=== PATIENT | female | born 1990 | race Hispanic/Latino ===

== ENCOUNTER 2019-01-18 21:39 | Emergency (ER) | payer OTHER ==
[~2019-01-18] VITALS: Ht 160 cm; Wt 90.7 kg
--- OUTSIDE RECORDS SUMMARY | 2019-01-18 21:42 | XMS REPORT | Continuity of Care Document ---
Author Author Zady Address Unknown Phone Unavailable Care Team Providers Care Channeling Machine Operator Name Role Phone Energy Excelerator Unavailable Unavailable Problems Problem Status Onset Date Classification Date Reported Comments Source Dysuria 10/29/2018 Diagnosis 10/29/2018 [facility] Body mass index 30+ - obesity 09/19/2018 Diagnosis 09/19/2018 [facility] Elevated blood-pressure reading without diagnosis of hypertension 09/18/2018 Diagnosis 09/19/2018 [facility] Urinary tract infectious disease 09/18/2018 Diagnosis 09/19/2018 [facility] Blood in urine 04/15/2018 Diagnosis 04/15/2018 [facility] Acute cystitis 04/15/2018 Diagnosis 04/15/2018 [facility] Acute Cystitis 04/15/2018 Problem 04/15/2018 [facility] Blood in Urine 04/15/2018 Problem 04/15/2018 [facility] Proteinuria 04/15/2018 Problem 04/15/2018 [facility] Acute tonsillitis 12/20/2017 Diagnosis 12/20/2017 [facility] Acute Tonsillitis 12/20/2017 Problem 12/20/2017 [facility] Body Mass Index 30+ - Obesity 11/09/2017 Problem 10/29/2018 [facility] Urinary Tract Infectious Disease 11/09/2017 Problem 11/09/2017 [facility] Urinary Symptoms 11/09/2017 Problem 11/09/2017 [facility] Cough 10/08/2017 Diagnosis 10/08/2017 [facility] Streptococcal sore throat 10/08/2017 Diagnosis 10/08/2017 [facility] Acute otitis media 07/02/2017 Diagnosis 07/03/2017 [facility] Feeling feverish 07/02/2017 Diagnosis 07/03/2017 [facility] Pain in throat 07/02/2017 Diagnosis 07/03/2017 [facility] Onych[employer]aze[employer] Innovationsosis of fingernails 01/13/2017 Diagnosis 01/14/2017 [facility] Counseling 08/26/2016 Diagnosis 08/26/2016 [facility] Allergic rhinitis 08/17/2016 Diagnosis 08/26/2016 [facility] Acute pharyngitis 08/17/2016 Diagnosis 08/26/2016 [facility] Immunization 08/17/2016 Diagnosis 08/26/2016 [facility] Acute Pharyngitis Problem 07/03/2017 [facility] Allergic Rhinitis Problem 07/03/2017 [facility] Acute Urinary Tract Infection Problem 07/03/2017 [facility] Medications Medication Details Route Status Patient Instructions Ordering Provider Order Date Source No Medications Reported No Medications Reported Active [facility] Clobetasol Propionate 0.5 MG/ML Topical Cream clobetasol 0.05 % topical cream Active [facility] [id number] 0.3 ML Epinephrine 1 MG/ML Auto-Injector epinephrine 0.3 mg/0.3 mL injection, auto-injector Active [facility] NITROFURANTOIN, MACROCRYSTALS 25 MG / Nitrofurantoin, Monohydrate 75 MG Oral Capsule nitrofurantoin monohydrate/macrocrystals 100 mg capsule Take 1 capsule twice a day by oral route with meals for 5 days. Active [facility] ciclopirox 80 MG/ML Topical Solution [Penlac Nail Lacquer] Penlac 8 % topical solution APPLY TO THE AFFECTED AREA(S) BY TOPICAL ROUTE ONCE DAILY PREFERABLY AT BEDTIME OR 8 HOURS BEFORE WASHING X 12 WEEKS. Active [facility] Phenazopyridine hydrochloride 200 MG Oral Tablet phenazopyridine 200 mg tablet Take 1 tablet 3 times a day by oral route as needed for bladder discomfort for 2 days. Active [facility] Amoxicillin 875 MG Oral Tablet amoxicillin 875 mg tablet Take 1 tablet twice a day by oral route for 10 days. Active [facility] NITROFURANTOIN, MACROCRYSTALS 25 MG / Nitrofurantoin, Monohydrate 75 MG Oral Capsule [Macrobid] Macrobid 100 mg capsule Take 1 capsule twice a day by oral route with meals for 5 days. Active [facility] Brompheniramine Maleate 0.4 MG/ML / Dextromethorphan Hydrobromide 2 MG/ML / Pseudoephedrine Hydrochloride 6 MG/ML Oral Solution [Bromfed DM] Bromfed DM 2 mg-30 mg-10 mg/5 mL syrup Take 10 mL every 4 hours by oral route. Active [facility] Lidocaine Hydrochloride 20 MG/ML Mucous Membrane Topical Solution Lidocaine Viscous 2 % mucosal solution Take 10 mL every 4 hours by oral route as needed. Max: 300 mg/dose, 8 doses/24h; Info: gargle; spit Active [facility] cefdinir 300 MG Oral Capsule cefdinir 300 mg capsule Take 1 capsule every 12 hours by oral route as directed for 10 days. Active [facility] Sulfamethoxazole 800 MG / Trimethoprim 160 MG Oral Tablet [Bactrim] Bactrim DS 800 mg-160 mg tablet Take 1 tablet every 12 hours by oral route for 5 days. Active [facility] Fluconazole 150 MG Oral Tablet fluconazole 150 mg tablet Active [facility] Allergies, Adverse Reactions, Alerts No Known Medication Allergies Immunizations Immunization Date Given Site Status Last Updated Comments Source influenza, injectable, quadrivalent 07/05/2018 completed [facility] Tdap 08/17/2016 completed [facility] Results Order Name Results Value Reference Range Date Interpretation Comments Source Urinalysis macro (dipstick) panel - Urine COLOR : Anneliese 10/29/2018 [facility] Urinalysis macro (dipstick) panel - Urine CLARITY : Cloudy 10/29/2018 [facility] Urinalysis macro (dipstick) panel - Urine LEUKOCYTES : Large 10/29/2018 [facility] Urinalysis macro (dipstick) panel - Urine NITRITES : Positive 10/29/2018 [facility] Urinalysis macro (dipstick) panel - Urine UROBILINOGEN : Normal 10/29/2018 [facility] Urinalysis macro (dipstick) panel - Urine PROTEIN : Trace 10/29/2018 [facility] Urinalysis macro (dipstick) panel - Urine pH : 5.0 10/29/2018 [facility] Urinalysis macro (dipstick) panel - Urine BLOOD : Large 10/29/2018 [facility] Urinalysis macro (dipstick) panel - Urine SPECIFIC GRAVITY : 1.000 10/29/2018 [facility] Urinalysis macro (dipstick) panel - Urine KETONES : Negative 10/29/2018 [facility] Urinalysis macro (dipstick) panel - Urine BILIRUBIN : Negative 10/29/2018 [facility] Urinalysis macro (dipstick) panel - Urine GLUCOSE Negative 10/29/2018 [facility] Urinalysis macro (dipstick) panel - Urine COLOR : Yellow 09/18/2018 [facility] Urinalysis macro (dipstick) panel - Urine CLARITY : Cloudy 09/18/2018 [facility] Urinalysis macro (dipstick) panel - Urine LEUKOCYTES : Large 09/18/2018 [facility] Urinalysis macro (dipstick) panel - Urine NITRITES : Positive 09/18/2018 [facility] Urinalysis macro (dipstick) panel - Urine UROBILINOGEN : Normal 09/18/2018 [facility] Urinalysis macro (dipstick) panel - Urine PROTEIN : Trace 09/18/2018 [facility] Urinalysis macro (dipstick) panel - Urine pH : 5.0 09/18/2018 [facility] Urinalysis macro (dipstick) panel - Urine BLOOD : Moderate 09/18/2018 [facility] Urinalysis macro (dipstick) panel - Urine SPECIFIC GRAVITY : 1.025 09/18/2018 [facility] Urinalysis macro (dipstick) panel - Urine KETONES : Negative 09/18/2018 [facility] Urinalysis macro (dipstick) panel - Urine BILIRUBIN : Negative 09/18/2018 [facility] Urinalysis macro (dipstick) panel - Urine GLUCOSE Negative 09/18/2018 [facility] Urinalysis macro (dipstick) panel - Urine COLOR : Yellow 04/15/2018 [facility] Urinalysis macro (dipstick) panel - Urine CLARITY : Cloudy 04/15/2018 [facility] Urinalysis macro (dipstick) panel - Urine LEUKOCYTES : Small 04/15/2018 [facility] Urinalysis macro (dipstick) panel - Urine NITRITES : Negative 04/15/2018 [facility] Urinalysis macro (dipstick) panel - Urine UROBILINOGEN : Normal 04/15/2018 [facility] Urinalysis macro (dipstick) panel - Urine PROTEIN : Trace 04/15/2018 [facility] Urinalysis macro (dipstick) panel - Urine pH : 8.0 04/15/2018 [facility] Urinalysis macro (dipstick) panel - Urine BLOOD : Moderate 04/15/2018 [facility] Urinalysis macro (dipstick) panel - Urine SPECIFIC GRAVITY : 1.010 04/15/2018 [facility] Urinalysis macro (dipstick) panel - Urine KETONES : Negative 04/15/2018 [facility] Urinalysis macro (dipstick) panel - Urine BILIRUBIN : Negative 04/15/2018 [facility] Urinalysis macro (dipstick) panel - Urine GLUCOSE Negative 04/15/2018 [facility] RESULT negative 12/20/2017 [facility] SWAB LOCATION Left and Right tonsillar pillars 12/20/2017 [facility] Urinalysis macro (dipstick) panel - Urine COLOR : Yellow 11/09/2017 [facility] Urinalysis macro (dipstick) panel - Urine CLARITY : Clear 11/09/2017 [facility] Urinalysis macro (dipstick) panel - Urine LEUKOCYTES : Large 11/09/2017 [facility] Urinalysis macro (dipstick) panel - Urine NITRITES : Negative 11/09/2017 [facility] Urinalysis macro (dipstick) panel - Urine UROBILINOGEN : Normal 11/09/2017 [facility] Urinalysis macro (dipstick) panel - Urine PROTEIN : Trace 11/09/2017 [facility] Urinalysis macro (dipstick) panel - Urine pH : 7.5 11/09/2017 [facility] Urinalysis macro (dipstick) panel - Urine BLOOD : Large 11/09/2017 [facility] Urinalysis macro (dipstick) panel - Urine SPECIFIC GRAVITY : 1.005 11/09/2017 [facility] Urinalysis macro (dipstick) panel - Urine KETONES : Negative 11/09/2017 [facility] Urinalysis macro (dipstick) panel - Urine BILIRUBIN : Negative 11/09/2017 [facility] Urinalysis macro (dipstick) panel - Urine GLUCOSE Negative 11/09/2017 [facility] RESULT negative 10/08/2017 [facility] RESULT negative 07/02/2017 [facility] SWAB LOCATION Left and Right tonsillar pillars 07/02/2017 [facility] Influenza A negative 07/02/2017 [facility] Influenza B negative 07/02/2017 [facility] Urinalysis macro (dipstick) panel - Urine COLOR : Anneliese 10/27/2016 [facility] Urinalysis macro (dipstick) panel - Urine CLARITY : Turbid 10/27/2016 [facility] Urinalysis macro (dipstick) panel - Urine LEUKOCYTES : Moderate 10/27/2016 [facility] Urinalysis macro (dipstick) panel - Urine NITRITES : Positive 10/27/2016 [facility] Urinalysis macro (dipstick) panel - Urine UROBILINOGEN : 2 10/27/2016 [facility] Urinalysis macro (dipstick) panel - Urine PROTEIN : 300 10/27/2016 [facility] Urinalysis macro (dipstick) panel - Urine pH : 6.5 10/27/2016 [facility] Urinalysis macro (dipstick) panel - Urine BLOOD : Large 10/27/2016 [facility] Urinalysis macro (dipstick) panel - Urine SPECIFIC GRAVITY : 1.030 10/27/2016 [facility] Urinalysis macro (dipstick) panel - Urine KETONES : Negative 10/27/2016 [facility] Urinalysis macro (dipstick) panel - Urine BILIRUBIN : Negative 10/27/2016 [facility] Urinalysis macro (dipstick) panel - Urine GLUCOSE Negative 10/27/2016 [facility] Influenza A negative 08/17/2016 [facility] Influenza B negative 08/17/2016 [facility] RESULT negative 08/17/2016 [facility] SWAB LOCATION Left and Right tonsillar pillars 08/17/2016 [facility] Pathology Reports No Data Provided for This Section Diagnostic Reports No Data Provided for This Section Consultation Notes No Data Provided for This Section Discharge Summaries No Data Provided for This Section History and Physicals No Data Provided for This Section Vital Signs Vital Sign Value Date Comments Source Diastolic (mm Hg) 76 10/29/2018 [facility] Height 63 10/29/2018 [facility] Systolic (mm Hg) 118 10/29/2018 [facility] Weight 190 10/29/2018 [facility] Diastolic (mm Hg) 70 09/18/2018 [facility] Height 63 09/18/2018 [facility] Systolic (mm Hg) 120 09/18/2018 [facility] Weight 190 09/18/2018 [facility] Diastolic (mm Hg) 76 04/15/2018 [facility] Height 63 04/15/2018 [facility] Systolic (mm Hg) 110 04/15/2018 [facility] Weight 190 04/15/2018 [facility] Diastolic (mm Hg) 76 12/20/2017 [facility] Height 63 12/20/2017 [facility] Systolic (mm Hg) 112 12/20/2017 [facility] Weight 190 12/20/2017 [facility] Diastolic (mm Hg) 68 11/09/2017 [facility] Height 63 11/09/2017 [facility] Systolic (mm Hg) 112 11/09/2017 [facility] Weight 190 11/09/2017 [facility] Diastolic (mm Hg) 76 10/08/2017 [facility] Height 63 10/08/2017 [facility] Systolic (mm Hg) 118 10/08/2017 [facility] Weight 190 10/08/2017 [facility] Diastolic (mm Hg) 82 07/02/2017 [facility] Height 63 07/02/2017 [facility] Systolic (mm Hg) 138 07/02/2017 [facility] Weight 180 07/02/2017 [facility] Diastolic (mm Hg) 90 01/13/2017 [facility] Height 63 01/13/2017 [facility] Systolic (mm Hg) 134 01/13/2017 [facility] Weight 190 01/13/2017 [facility] Diastolic (mm Hg) 86 10/27/2016 [facility] Height 63 10/27/2016 [facility] Systolic (mm Hg) 134 10/27/2016 [facility] Weight 180 10/27/2016 [facility] Diastolic (mm Hg) 80 08/17/2016 [facility] Height 63 08/17/2016 [facility] Systolic (mm Hg) 110 08/17/2016 [facility] Weight 190 08/17/2016 [facility] Encounters Location Location Details Encounter Type Encounter Number Reason For Visit Attending Provider ADM Date DC Date Status Source [place] - [facility] - [id number] JUDSON Richter: [address] [place] [address], Ph. [id number] Eirka Nugent 08/17/2016 [facility] [place] [facility] - [id number] MontalvoP: [address] [place] [address], Ph. [id number] Erika Nugent 08/17/2016 [facility] [place] [facility] - [id number] JUDSON Shah-C: [address] [place] [address], Ph. [id number] Rosetta Panchal 10/27/2016 [facility] [place] [facility] - [id number] Rosetta Panchal, TAG PRESS OPERATOR-C: [address], [place] [address], Ph. [id number] Rosetta Bautistaroy 01/13/2017 [facility] [place] [facility] - [id number] Anthony Dela Cruzen, TAG PRESS OPERATOR-C: [address], [place] [address], Ph. [phone] [id number] Anthony Nugent 07/02/2017 [facility] [place] [facility] - [id number] Juan Carlos Jose, TAG PRESS OPERATOR-C: [address], [place] [address], Ph. [id number] Juan Carlosdenisha Swansnoton 10/08/2017 [facility] [place] [facility] - [id number] Rosetta Panchal, TAG PRESS OPERATOR-C: [address], [place] [address], Ph. [id number] Rosetta Bautistaroy 11/09/2017 [facility] [place] [facility] - [id number] Rosetta Panchal, TAG PRESS OPERATOR-C: [address], [place] [address], Ph. [id number] Rosetta Panchal 12/20/2017 [facility] [place] [facility] - [id number] Rosetta Ansley, TAG PRESS OPERATOR-C: [address] [place] [address], Ph. [id number] Rosetta Panchal 04/15/2018 [facility] [place] [facility] - [id number] Radha Quick, TAG PRESS OPERATOR-C: [address] [place] [address], Ph. [phone] [id number] Radha Abdelrahman 09/18/2018 [facility] [place] [facility] - [id number] Gilda Bernal, SPORTS EQUIPMENT RACKER-C: [address] [place] [address], Ph. [id number] Gilda Bernal 10/29/2018 [facility] Procedures No Data Provided for This Section Assessment and Plan No Data Provided for This Section Plan of Care No Data Provided for This Section Social History Social History Date Source Smoking Status Never Smoker 08/04/2015 [facility] Family History No Data Provided for This Section Advance Directives No Data Provided for This Section Functional Status No Data Provided for This Section
--- OUTSIDE RECORDS SUMMARY | 2019-01-18 21:44 | XMS REPORT | Encounter Summary ---
Author Organization Unknown Address [address] [place] [address] Phone [phone] Care Team Providers Care Hand Mica Plate Layer Name Role Phone Francis Nino MD 3 [phone] Reason for Visit Medical Complaint Instructions 1. Dysuria culture, urine urinalysis, dipstick painful urination (dysuria): care instructions Bactrim DS 800 mg-160 mg tablet Discussion Note Pt in NAD, understands all information provided Plan of Care Patient Instructions Urinary Tract Infection Your symptoms and/or tests indicate a Urinary Tract Infection, a bacterial infection of the bladder. Take antibiotics only as prescribed. Once starting an antibiotic course, finish the entire course unless otherwise indicated by a medical professional. If you develop a reaction to the medication, including rash, hives, swelling of throat, difficulty breathing, stop immediately and seek medical care. Take a daily probiotic or eat a daily yogurt Drink plenty of non-caffeinated drinks. To prevent Urinary Tract Infections, wipe front to back if you are female, urinate after intercourse if you are active, drink plenty of fluids, urinate after bathing or swimming, do not keep wet clothing on for extended periods of time, and urinate when you have the urge (do not hold urine). If a urine culture was collected, you will receive a phone call with positive results and results without portal access. Normal results will be published to the portal at [facility] If symptoms continue or do not improve, follow up with your primary care provider. Seek care immediately with your primary care provider, an urgent care, or an emergency room if symptoms worsen or you develop fever above 101, vomiting, back pain, blood in the urine, abdominal pain, dizziness, difficulty or inability to urinate. If you have any need to contact [facility], including questions or concerns, please contact or Reminders Provider Appointments None recorded. Lab Culture, Urine 10/29/2018 [facility] Urinalysis, Dipstick 10/29/2018 [facility] Referral None recorded. Procedures None recorded. Surgeries None recorded. Imaging None recorded. Medications Name Start Date Bactrim DS 800 mg-160 mg tablet Take 1 tablet every 12 hours by oral route for 5 days. fluconazole 150 mg tablet Medications Administered None recorded. Vitals Height Weight BMI Blood Pressure 5 ft 3 in 190 lbs 33.7 kg/m2 118/76 mm[Hg] Lab Results Date Name Specimen Result Interpretation Description Value Range Status Address 10/29/2018 Urinalysis, Dipstick Color : Anneliese [facility]: [address] [place] [address] Clarity : Cloudy [facility]: [address] [place] [address] Leukocytes : Large [facility]: [address] [place] [address] Nitrites : Positive [facility]: [address] [place] [address] Urobilinogen : Normal [facility]: [address] [place] [address] Protein : Trace [facility]: [address] [place] [address] Ph : 5.0 [facility]: [address] [place] [address] Blood : Large [facility]: [address] [place] [address] Specific [place] : 1.000 [facility]: [address] [place] [address] Ketones : Negative [facility]: [address] [place] [address] Bilirubin : Negative [facility]: [address] [place] [address] Glucose Negative [facility]: [address] [place] [address] Allergies Code Code System Name Reaction Severity Status Onset NKDA Problems Name Status Onset Date Source Body Mass Index 30+ - Obesity Active 11/09/2017 Procedures None recorded. Vaccine List Vaccine Type influenza, injectable, quadrivalent 07/05/2018 Tdap 08/17/20160.5 mL Social History Smoking Status Never Smoker Past Encounters 10/29/2018 Dysuria Gilda Bernal, AMAN-C: [address] [place] [address], Ph. History of Present Illness [id number] Reported By: Patient HPI: Quality: pressure. Severity: moderate. Duration: started 4 days. Context: not sexually active, no known exposure to STD, no prior history of STDs. Associated Symptoms: no fever/chills, no flank pain, no jaundice, no blood in the urine, no vaginal discharge, no urgency, no blisters on genitals, no rash on genitals, no muscle aches, no headache, urinary frequency, feeling of incomplete emptying of bladder Review of Systems:ROS as noted in the HPI Review of Systems Basic Reported By: Patient Physical Exam Adult Basic, Adult Female Complete Reported By: Patient Constitutional: General Appearance: healthy-appearing, well-nourished, well-developed. Level of Distress: NAD. Ambulation: ambulating normally Psychiatric: Mental Status: active and alert. Orientation: to time, to place, to person Female : External genitalia: normal, no lesions, no rash; denies. Vagina: moist mucosa, no discharge; denies
--- OUTSIDE RECORDS SUMMARY | 2019-01-18 21:45 | XMS REPORT | Encounter Summary ---
Author Organization Unknown Address [address] [place] [address] Phone [phone] Reason for Visit Medical Complaint Instructions 1. Onychomycosis of fingernails Penlac 8 % topical solution Discussion Note Pt is in NAD; Verbalizes understanding of all instructions with no questions at this time. Patient educational handouts: No information available. Plan of Care Patient Instructions Keep area clean and dry apply antifungal solution as directed. Take medications as prescribed. Return to clinic or follow up with your PCP or title vehicle service attendant within 2-3 days if symptoms worsen as discussed. In case of emergency call 911 or go to nearest ER. Reminders Provider Appointments None recorded. Lab None recorded. Referral None recorded. Procedures None recorded. Surgeries None recorded. Imaging None recorded. Medications Name Start Date clobetasol 0.05 % topical cream epinephrine 0.3 mg/0.3 mL injection, auto-injector nitrofurantoin monohydrate/macrocrystals 100 mg capsule Take 1 capsule twice a day by oral route with meals for 5 days. Penlac 8 % topical solution APPLY TO THE AFFECTED AREA(S) BY TOPICAL ROUTE ONCE DAILY PREFERABLY AT BEDTIME OR 8 HOURS BEFORE WASHING X 12 WEEKS. phenazopyridine 200 mg tablet Take 1 tablet 3 times a day by oral route as needed for bladder discomfort for 2 days. Medications Administered None recorded. Vitals Height Weight BMI Blood Pressure 5 ft 3 in 190 lbs 33.7 kg/m2 134/90 mm[Hg] Lab Results None recorded. Allergies Code Code System Name Reaction Severity Onset NKDA Problems Name Status Onset Date Source Acute Pharyngitis Active Encounter Allergic Rhinitis Active Encounter Acute Urinary Tract Infection Active Encounter Cough Active Encounter Procedures None recorded. Vaccine List Vaccine Type Tdap 08/17/20160.5 mL Social History Smoking Status Never Smoker Past Encounters 01/13/2017 Onychomycosis of Fingernails Rosetta Panchal, JUDSON-C: [address] [place] [address], Ph. History of Present Illness [id number]-Skin Lesion-Bite 1 Reported By: Patient HPI: Location: hands. Quality: not itchy, not painful, multiple, localized. Severity: worsening, moderate. Duration: ; 2-3 days. Onset/Timing: gradual onset. Context: no new detergents or skin products, no one else with similar rash, no sting or bite; recent manicure. Aggravating factors: nothing makes it worse. Alleviating factors: nothing gives relief. Associated Symptoms: no fever/chills, no muscle aches, no headache, no cold symptoms, no nausea, no vomiting, no diarrhea, no urinary symptoms Review of Systems:ROS as noted in the HPI Review of Systems Basic Reported By: Patient Physical Exam Adult Basic, 11-13 Yr Males, 14-21 Yr Male, Adult Female Complete Reported By: Patient Constitutional: General Appearance: healthy-appearing, well-nourished, well-developed. Level of Distress: NAD. Ambulation: ambulating normally Psychiatric: Mental Status: active and alert. Orientation: to time, to place, to person Lungs: Respiratory effort: no dyspnea. Auscultation: breath sounds normal Cardiovascular: Heart Auscultation: RRR, no murmurs Skin: Inspection and palpation: no rash, no lesions, no ulcer, no abnormal nevi, no induration, no nodules, good turgor, no jaundice. Nails: abnormal Abdomen: Palpation: non-distended, no guarding, no tenderness. Liver: non-tender, no hepatomegaly. Spleen: non-tender, no splenomegaly. Hernia: no palpable hernias. Bowel Sounds: normal. Inspection and Palpation: soft, no rebound tenderness, no masses, no CVA tenderness
--- OUTSIDE RECORDS SUMMARY | 2019-01-18 21:45 | XMS REPORT | Encounter Summary ---
Author Organization Unknown Address [address] [place] [address] Phone [phone] Reason for Visit Medical Complaint Instructions 1. Acute otitis media amoxicillin 875 mg tablet 2. Feeling feverish rapid flu (A+B) 3. Pain in throat sore throat: care instructions rapid strep group A, throat Discussion Note: None recorded. Plan of Care Patient Instructions take medication as directed. zyrtec d or claritin d as directed. follow up pcp Reminders Provider Appointments None recorded. Lab Rapid Flu (A+B) 07/02/2017 [facility] Rapid Strep Group a, Throat 07/02/2017 [facility] Referral None recorded. Procedures None recorded. Surgeries None recorded. Imaging None recorded. Medications Name Start Date amoxicillin 875 mg tablet Take 1 tablet every 12 hours by oral route for 10 days. Medications Administered None recorded. Vitals Height Weight BMI Blood Pressure 5 ft 3 in 180 lbs 31.9 kg/m2 138/82 mm[Hg] Lab Results Date Name Specimen Result Interpretation Description Value Range Status Address Rapid Strep Group a, Throat Result negative [facility]: [address] [place] [address] Swab Location Left and Right tonsillar pillars [facility]: [address] [place] [address] Rapid Flu (A+B) Influenza a negative [facility]: [address] [place] [address] Influenza B negative [facility]: [address] [place] [address] Allergies Code Code System Name Reaction Severity Status Onset NKDA Problems Name Status Onset Date Source Acute Pharyngitis Active Encounter Allergic Rhinitis Active Encounter Acute Urinary Tract Infection Active Encounter Cough Active Encounter Procedures None recorded. Vaccine List Vaccine Type Tdap 08/17/20160.5 mL Social History Smoking Status Never Smoker Past Encounters 07/02/2017 Acute Otitis Media; Feeling Feverish; Pain in Throat [facility]: [address] [facility] [place] [address], Ph. History of Present Illness Tuihz-Afkqjccwto-Yeibrzh Reported By: Patient HPI: Location: throat, chest. Quality: productive cough, sore throat, colored phlegm. Duration: 5days. Severity: moderate. Onset/Timing: gradual. Context: no sick contacts, no foreign travel, non-smoker. Modifying factors: OTC medication. Associated Symptoms: no sputum production, no shortness of breath, no wheezing, no change in number of pillows needed to sleep at night, no sweats, no significant weight gain, no significant weight loss, no morning cough, no vomiting, no diarrhea, no rash, no nausea, no fever, no muscle aches, no headache, sore throat Review of Systems:ROS as noted in the HPI Review of Systems Basic Reported By: Patient Physical Exam Adult Basic, Adult Female Complete Reported By: Patient Constitutional: General Appearance: obese. Level of Distress: NAD. Ambulation: ambulating normally Psychiatric: Mental Status: active and alert Eyes: Lids and Conjunctivae: non-injected, no discharge Jfs-Mrja-Cxfxd-Throat: Ears: TM erythematous, TM bulging; right ear. Hearing: hearing decreased. Nose: no lesions on external nose, nares patent, no septal deviation, nasal passages clear, no sinus tenderness, no nasal discharge. Lips, Teeth, and Gums: no mouth or lip ulcers. Oropharynx: moist mucous membranes, no erythema, no exudates, tonsils not enlarged Neck: Neck: trachea midline. Lymph Nodes: no cervical LAD Lungs: Respiratory effort: no dyspnea, no tachypnea, no use of accessory muscles, no intercostal retractions. Auscultation: breath sounds normal Cardiovascular: Heart Auscultation: RRR, no murmurs
--- OUTSIDE RECORDS SUMMARY | 2019-01-18 21:46 | XMS REPORT | Encounter Summary ---
Author Organization Unknown Address [address] [place] [address] Phone [phone] Reason for Visit Medical Complaint Instructions 1. Streptococcal sore throat rapid strep group A, throat rapid flu (A+B) Lidocaine Viscous 2 % mucosal solution amoxicillin 875 mg tablet strep throat: care instructions rapid strep group A, throat hand-washing: care instructions 2. Cough cough: care instructions Bromfed DM 2 mg-30 mg-10 mg/5 mL syrup Discussion Note Pt is in no apparent acute distress; Verbalizes understanding of and agreement with all instructions with no questions at this time. Plan of Care Patient Instructions When to seek urgent help See your doctor or seek Emergency Services immediately if you have a sore throat along with any of the following: Difficulty breathing Skin rash Drooling because you cannot swallow Swelling of the neck or tongue Stiff neck or difficulty opening the mouth Underlying chronic illness/medication that may impair your immune system Pain medication Edvw-rtl-uvlyrpm pain relievers such as acetaminophen (Tylenol) or a nonsteroidal anti-inflammatory agent such as ibuprofen or naproxen (Motrin or Aleve) have been shown to provide fast and effective relief of sore throat pain. Oral steroids are not routinely used because steroids come with (potentially serious) side effects, the benefit in treating sore throat pain is limited, and ufjr-gqh-jtkdlns treatments help most patients. Oral rinses Salt-water gargles are an old standby for throat pain. It is not clear that salt water works to relieve pain, but it is unlikely to be harmful. Most recipes suggest 1/4 to 1/2 teaspoon (1.5 to 3.0 g) of salt per one cup (8 ounces or 250 mL) of warm water. Sprays Sprays containing topical anesthetics (eg, benzocaine, phenol) are available to treat sore throat. However, such sprays are no more effective than sucking on hard candy. Lozenges A variety of lozenges (cough drops) containing topical anesthetics are available to treat throat pain or relieve dryness. Lozenges may persist longer in the throat than sprays or gargles and, thus, may be more effective for symptom relief [2]. Other treatments Other treatments that may help with throat pain include sipping warm beverages (eg, honey or lemon tea, chicken soup), cold beverages, or eating cold or frozen desserts (eg, ice cream, popsicles). Alternative therapies Health food stores, vitamin outlets, and internet websites offer alternative treatments for relief of sore throat pain. These types of treatments are not recommend due to the risks of contamination with pesticides/herbicides, inaccurate labeling and dosing information, and a lack of studies showing that these treatments are safe and effective. Return to work/school If you have been diagnosed with strep throat, stay home from work or school until you have completed 24 hours of antibiotics. Within 24 hours of beginning antibiotic treatment, you will feel better and will be less contagious. If you have a sore throat (not diagnosed as strep), you may participate in your usual activities as soon as you feel well, though practical prevention measures such as good hand washing and cough etiquette should be observed. Most facilities such as schools and businesses have internal rules governing return to work after illness. Many require 24 hours of no fever without the use of fever reducers such as acetaminophen or ibuprofen. Check with your job or school to find out when you may return per their rules. Thank you for allowing me to participate in your healthcare! Reminders Provider Appointments None recorded. Lab Rapid Strep Group a, Throat 10/08/2017 [facility] Rapid Flu (A+B) 10/08/2017 [facility] Rapid Strep Group a, Throat 10/08/2017 [facility] Referral None recorded. Procedures None recorded. Surgeries None recorded. Imaging None recorded. Medications Name Start Date amoxicillin 875 mg tablet Take 1 tablet twice a day by oral route for 10 days. Bromfed DM 2 mg-30 mg-10 mg/5 mL syrup Take 10 mL every 4 hours by oral route. Lidocaine Viscous 2 % mucosal solution Take 10 mL every 4 hours by oral route as needed. Max: 300 mg/dose, 8 doses/24h; Info: gargle; spit Medications Administered None recorded. Vitals Height Weight BMI Blood Pressure 5 ft 3 in 190 lbs 33.7 kg/m2 118/76 mm[Hg] Lab Results Date Name Specimen Result Interpretation Description Value Range Status Address 10/08/2017 Rapid Strep Group a, Throat Result negative [facility]: [address] [facility] Allergies Code Code System Name Reaction Severity Status Onset NKDA Problems None recorded. Procedures None recorded. Vaccine List Vaccine Type Tdap 08/17/20160.5 mL Social History Smoking Status Never Smoker Past Encounters 10/08/2017 Streptococcal Sore Throat; Cough Juan Carlos Garcia, [facility]: [address] [place] [address], Ph. History of Present Illness Throat-Oral Complaint Reported By: Patient HPI: Location: throat. Quality: sore throat, productive cough, congested. Severity: mild, moderate. Duration: 3 days. Onset/Timing: gradual. Context: no foreign travel, non-smoker, sick contact. Associated Symptoms: no fever, no headache, no body aches, no sputum production, no shortness of breath, no wheezing, no change in number of pillows needed to sleep at night, no sweats, no significant weight gain, no significant weight loss, no morning cough, no vomiting, no diarrhea, no rash, no nausea, fever, sore throat Review of Systems:ROS as noted in the HPI Review of Systems Basic Reported By: Patient Physical Exam Adult Basic, Adult Female Complete Reported By: Patient
--- OUTSIDE RECORDS SUMMARY | 2019-01-18 21:47 | XMS REPORT | Encounter Summary ---
Author Organization Unknown Address [address] [place] [address] Phone [phone] Care Team Providers Care Immersion Metal Cleaner Name Role Phone Francis Nino MD 3 [phone] Reason for Visit Medical Complaint Instructions 1. Body mass index 30+ - obesity body mass index: care instructions 2. Acute tonsillitis rapid strep group A, throat tonsillitis: care instructions cefdinir 300 mg capsule culture, respiratory Discussion Note Pt is in NAD; Verbalizes understanding of all instructions with no questions at this time. Plan of Care Patient Instructions Alternate with Ibuprofen and acetaminophen every 4hrs as needed for pain/fever/headache/sore throat. Proper hydration and rest. Take antibiotics as directed. Do not share any utensils/cups, no kissing and change toothbrush after 48 hrs of antibiotic use. Take medications as prescribed. Return to clinic or follow up with your PCP within 2-3 days if symptoms worsen as discussed. Recommend follow a low sodium/fat/carb diet and exercise 30-45 mins/d 3-4 days a week once symptoms resolve. Reminders Provider Appointments None recorded. Lab Rapid Strep Group a, Throat 12/20/2017 [facility] Culture, Respiratory 12/20/2017 [facility] Referral None recorded. Procedures None recorded. Surgeries None recorded. Imaging None recorded. Medications Name Start Date cefdinir 300 mg capsule Take 1 capsule every 12 hours by oral route as directed for 10 days. Medications Administered None recorded. Vitals Height Weight BMI Blood Pressure 5 ft 3 in 190 lbs 33.7 kg/m2 112/76 mm[Hg] Lab Results Date Name Specimen Result Interpretation Description Value Range Status Address Rapid Strep Group a, Throat Result negative [facility]: [address] [place] [address] Swab Location Left and Right tonsillar pillars [facility]: [address] [place] [address] Allergies Code Code System Name Reaction Severity Status Onset NKDA Problems Name Status Onset Date Source Body Mass Index 30+ - Obesity Active 11/09/2017 Acute Tonsillitis Active 12/20/2017 Procedures None recorded. Vaccine List Vaccine Type Tdap 08/17/20160.5 mL Social History Smoking Status Never Smoker Past Encounters 12/20/2017 Body Mass Index 30+ - Obesity; Acute Tonsillitis Rosetta Bautistaroy, [facility]: [address] [place] [address], Ph. History of Present Illness Throat-Oral Complaint Reported By: Patient HPI: Location: throat. Quality: sore throat. Severity: moderate, pain level 2/10. Duration: 3 days. Onset/Timing: sudden. Context: no foreign travel, non-smoker, sick contact. Modifying factors: ; has not taken anything. Associated Symptoms: no fever, no headache, no body aches, no sputum production, no shortness of breath, no wheezing, no change in number of pillows needed to sleep at night, no sweats, no significant weight gain, no significant weight loss, no morning cough, no vomiting, no diarrhea, no rash, no nausea, sore throat Review of Systems Basic Reported By: Patient Constitutional: Constitutional: no fever Eyes: Eyes: no eye complaints Bmim-Mqee-Cmgpu-Throat: Ears: no ear complaints. Nose: no nose/sinus problems. Mouth/Throat: no bleeding gums, no mouth complaints, no teeth problems, sore throat Cardiovascular: Cardiovascular: no chest pain, no shortness of breath, no known heart murmur Respiratory: Respiratory: no cough, no wheezing, no shortness of breath Gastrointestinal: Gastrointestinal: no abdominal pain, no vomiting / diarrhea Genitourinary: Genitourinary: no urinary complaints, no discharge Musculoskeletal: Musculoskeletal: no muscle aches, no muscle weakness, no arthralgias/joint pain, no back pain Skin: Skin: no abnormal / changing mole, no jaundice, no rashes Neurologic: Neurologic: no loss of consciousness, no weakness, no numbness, no seizures, no dizziness, no headaches Physical Exam Adult Basic, Adult Female Complete Reported By: Patient Constitutional: General Appearance: obese. Level of Distress: NAD. Ambulation: ambulating normally Psychiatric: Mental Status: active and alert. Orientation: to time, to place, to person Tpp-Pdvb-Zpsdt-Throat: Ears: no lesions on external ear, no outer ear tenderness, EACs clear, TMs clear. Hearing: no hearing loss. Nose: no lesions on external nose, nares patent, no septal deviation, nasal passages clear, no sinus tenderness, no nasal discharge. Lips, Teeth, and Gums: no mouth or lip ulcers, no bleeding gums, normal dentition. Oropharynx: moist mucous membranes, erythema, exudates, tonsils enlarged 3+ Neck: Lymph Nodes: no cervical LAD Lungs: Respiratory effort: no dyspnea, no tachypnea, no use of accessory muscles, no intercostal retractions. Auscultation: breath sounds normal Cardiovascular: Heart Auscultation: RRR, no murmurs Neurologic: Gait and Station: normal gait, normal station
--- OUTSIDE RECORDS SUMMARY | 2019-01-18 21:47 | XMS REPORT | Encounter Summary ---
Author Organization Unknown Address [address] [place] [address] Phone [phone] Care Team Providers Care Rehabilitation Liaison Name Role Phone Francis Nino MD 3 [phone] Reason for Visit Medical Complaint Instructions 1. Urinary tract infectious disease urinary tract infection in women: care instructions Macrobid 100 mg capsule urinalysis, dipstick culture, urine 2. Body mass index 30+ - obesity body mass index: care instructions Discussion Note Pt is in NAD; Verbalizes understanding of all instructions with no questions at this time. Plan of Care Patient Instructions Recommend proper hydration and frequent urination. Avoid douching, Recommend urinating after sexual intercourse. Recommend wipe front to back after urinating. Avoid using tubs. Take medications as prescribed. Follow up with your PCP within 2-3 days if symptoms worsen as discussed. Recommend follow a low sodium/fat/carb diet and exercise 30-45 mins/d 3-4 days a week once symptoms resolve. Reminders Provider Appointments None recorded. Lab Urinalysis, Dipstick 11/09/2017 [facility] Culture, Urine 11/09/2017 [facility] Referral None recorded. Procedures None recorded. Surgeries None recorded. Imaging None recorded. Medications Name Start Date Macrobid 100 mg capsule Take 1 capsule twice a day by oral route with meals for 5 days. Medications Administered None recorded. Vitals Height Weight BMI Blood Pressure 5 ft 3 in 190 lbs 33.7 kg/m2 112/68 mm[Hg] Lab Results Date Name Specimen Result Interpretation Description Value Range Status Address 11/09/2017 Urinalysis, Dipstick Color : Yellow [facility]: [address] [place] [address] Clarity : Clear [facility]: [address] [place] [address] Leukocytes : Large [facility]: [address] [place] [address] Nitrites : Negative [facility]: [address] [place] [address] Urobilinogen : Normal [facility]: [address] [place] [address] Protein : Trace [facility]: [address] [place] [address] Ph : 7.5 [facility]: [address] [facility] Blood : Large [facility]: [address] [facility] Specific [place] : 1.005 [facility]: [address] [facility] Ketones : Negative [facility]: [address] [facility] Bilirubin : Negative [facility]: [address] [facility] Glucose Negative [facility]: [facility] Allergies Code Code System Name Reaction Severity Status Onset NKDA Problems Name Status Onset Date Source Body Mass Index 30+ - Obesity Active 11/09/2017 Urinary Tract Infectious Disease Active 11/09/2017 Urinary Symptoms Active 11/09/2017 Procedures None recorded. Vaccine List Vaccine Type Tdap 08/17/20160.5 mL Social History Smoking Status Never Smoker Past Encounters 11/09/2017 Urinary Tract Infectious Disease; Body Mass Index 30+ - Obesity Rosetta Panchal, [facility]: [address] [place] [address], Ph. History of Present Illness Tskmfe-BNV-Jsueiyx Reported By: Patient HPI: Location: urethra. Quality: burning. Severity: worsening, moderate. Duration: constant. Onset/Timing: worse, gradual. Context: no known exposure to STD, no prior history of STDs, sexually active, LMP4-21-18, heterosexual, vaginal intercourse, wipes anterior to posterior, voids after intercourse. Modifying factors nothing makes it worse. Associated Symptoms: no fever/chills, no flank pain, no jaundice, no blood in the urine, no pain during urination, no vaginal discharge, no blisters on genitals, no rash on genitals, no muscle aches, no headache, burning sensation during urination Review of Systems Basic Reported By: Patient Constitutional: Constitutional: no fever Eyes: Eyes: no eye complaints Pehe-Uhwl-Oewac-Throat: Ears: no ear complaints. Nose: no nose/sinus problems. Mouth/Throat: no sore throat, no bleeding gums, no mouth complaints, no teeth problems Cardiovascular: Cardiovascular: no chest pain, no shortness of breath, no known heart murmur Respiratory: Respiratory: no cough, no wheezing, no shortness of breath Gastrointestinal: Gastrointestinal: no abdominal pain, no vomiting / diarrhea Genitourinary: Genitourinary: dysuria Musculoskeletal: Musculoskeletal: no muscle aches, no muscle [...] Orientation: to time, to place, to person Eyes: Lids and Conjunctivae: non-injected, no pallor; no periorbital edema Neck: Neck: supple. Lymph Nodes: no cervical LAD Lungs: Respiratory effort: no dyspnea, no tachypnea, no use of accessory muscles, no intercostal retractions. Auscultation: breath sounds normal Cardiovascular: Heart Auscultation: RRR, no murmurs Musculoskeletal:: Extremities: no edema Neurologic: Gait and Station: normal gait Abdomen: Bowel Sounds: normal. Inspection and Palpation: soft, non-distended, no tenderness, no guarding, no rebound tenderness, no masses, no CVA tenderness. Hernia: none palpable
--- OUTSIDE RECORDS SUMMARY | 2019-01-18 21:48 | XMS REPORT | Encounter Summary ---
Author Organization Unknown Address [address] [place] [address] Phone [phone] Care Team Providers Care Frame Changer Name Role Phone Francis Nino MD 3 [phone] Reason for Visit Medical Complaint Instructions 1. Urinary tract infectious disease urinary tract infection in women: care instructions culture, urine Macrobid 100 mg capsule urinalysis, dipstick 2. Elevated blood-pressure reading without diagnosis of hypertension elevated blood pressure: care instructions 3. Body mass index 30+ - obesity A healthy lifestyle: care instructions Discussion Note: None recorded. Plan of Care Patient Instructions Drink plenty of water and wear cotton underwear. Please finish all antibiotics, even if you are feeling better. This prevents the infection from coming back. Please seek care or return to [facility] if symptoms do not resolve in 1 week. Reminders Provider Appointments None recorded. Lab Culture, Urine 09/18/2018 [facility] Urinalysis, Dipstick 09/18/2018 [facility] Referral None recorded. Procedures None recorded. Surgeries None recorded. Imaging None recorded. Medications Name Start Date Macrobid 100 mg capsule Take 1 capsule twice a day by oral route with meals for 5 days. Medications Administered None recorded. Vitals Height Weight BMI Blood Pressure 5 ft 3 in 190 lbs 33.7 kg/m2 (1) 124/68 mm[Hg] (2) 120/70 mm[Hg] Lab Results Date Name Specimen Result Interpretation Description Value Range Status Address Urinalysis, Dipstick Color : Yellow [facility]: [address] [place] [address] Clarity : Cloudy [facility]: [address] [place] [address] Leukocytes : Large [facility]: [address] [place] [address] Nitrites : Positive [facility]: [address] [place] [address] Urobilinogen : Normal [facility]: [address] [place] [address] Protein : Trace [facility]: [address] [place] [address] Ph : 5.0 [facility]: [address] [place] [address] Blood : Moderate [facility]: [address] [place] [address] Specific [place] : 1.025 [facility]: [facility] Ketones : Negative [facility]: [address] [facility] Bilirubin : Negative [facility]: [address] [facility] Glucose Negative [facility]: [facility] Allergies Code Code System Name Reaction Severity Status Onset NKDA Problems Name Status Onset Date Source Body Mass Index 30+ - Obesity Active 11/09/2017 Procedures None recorded. Vaccine List Vaccine Type influenza, injectable, quadrivalent 07/05/2018 Tdap 08/17/20160.5 mL Social History Smoking Status Never Smoker Past Encounters 09/18/2018 Urinary Tract Infectious Disease; Elevated Blood-pressure Reading without Diagnosis of Hypertension; Body Mass Index 30+ - Obesity Radha Quick [employer]: [address] [place] [address], Ph. History of Present Illness Ntqrtl-EOG-Pkosbrk Reported By: Patient HPI: Duration: started 1 day. Context: no known exposure to STD, no prior history of STDs, sexually active. Associated Symptoms: no fever/chills, no flank pain, no jaundice, no blood in the urine, no vaginal discharge, no blisters on genitals, no rash on genitals, pain during urination, burning sensation during urination, urgency, hesitancy, urinary frequency, feeling of incomplete emptying of bladder Review of Systems:ROS as noted in the HPI Review of Systems Basic Reported By: Patient Physical Exam Adult Basic, Adult Female Complete, 14-21 Yr Females Reported By: Patient Constitutional: General Appearance: healthy-appearing, well-nourished, well-developed. Level of Distress: NAD. Ambulation: ambulating normally Lungs: Respiratory effort: no dyspnea, no tachypnea, no use of accessory muscles, no intercostal retractions. Auscultation: breath sounds normal, clear to auscultation, no wheezing, no rales/crackles, no rhonchi, no retractions Cardiovascular: Heart Auscultation: RRR, no murmurs, no gallops, no rub, normal femoral pulse. Rate and rhythm: regular Abdomen: Bowel Sounds: normal. Inspection and Palpation: soft, non-distended, no tenderness, no guarding, no rebound tenderness, no masses, no CVA tenderness. Liver: non-tender, no hepatomegaly. Spleen: non-tender, no splenomegaly. Hernia: none palpable. Palpation: (normal) bowel sounds
--- OUTSIDE RECORDS SUMMARY | 2019-01-18 21:49 | XMS REPORT | Encounter Summary ---
Author Organization Unknown Address [address] [place] [address] Phone [phone] Care Team Providers Care Fountain Jerk Name Role Phone Francis Nino MD 3 [phone] Reason for Visit Medical Complaint Instructions 1. Acute cystitis urinalysis, dipstick urinary tract infection in women: care instructions Macrobid 100 mg capsule culture, urine 2. Blood in urine blood in the urine: care instructions 3. Proteinuria proteinuria: care instructions 4. Body mass index 30+ - obesity body [...] within 2-3 days if symptoms worsen as discussed and within a week for re-assessment of protein and blood in urine. Recommend follow a low sodium/fat/carb diet and exercise 30-45 mins/d 3-4 days a week once symptoms resolve. Reminders Provider Appointments None recorded. Lab Urinalysis, Dipstick 04/15/2018 [facility] Culture, Urine 04/15/2018 [facility] Referral None recorded. Procedures None recorded. Surgeries None recorded. Imaging None recorded. Medications Name Start Date Macrobid 100 mg capsule Take 1 capsule twice a day by oral route with meals for 5 days. Medications Administered None recorded. Vitals Height Weight BMI Blood Pressure 5 ft 3 in 190 lbs 33.7 kg/m2 110/76 mm[Hg] Lab Results Date Name Specimen Result Interpretation Description Value Range Status Address 04/15/2018 Urinalysis, Dipstick Color : Yellow [facility]: [address] [place] [address] Clarity : Cloudy [facility]: [address] [place] [address] Leukocytes : Small [facility]: [address] [place] [address] Nitrites : Negative [facility]: [address] [place] [address] Urobilinogen : Normal [facility]: 9 [facility] Protein : Trace [facility]: 9 [facility] Ph : 8.0 [facility]: 9 [facility] Blood : Moderate [facility]: 9 [facility] Specific [place] : 1.010 [facility]: 9 [facility] Ketones : Negative [facility]: 9 [facility] Bilirubin : Negative [facility]: 9 [facility] Glucose Negative [facility]: 9 [facility] Allergies Code Code System Name Reaction Severity Status Onset NKDA Problems Name Status Onset Date Source Body Mass Index 30+ - Obesity Active 11/09/2017 Acute Cystitis Active 04/15/2018 Blood in Urine Active 04/15/2018 Proteinuria Active 04/15/2018 Procedures None recorded. Vaccine List Vaccine Type Tdap 08/17/20160.5 mL Social History Smoking Status Never Smoker Past Encounters 04/15/2018 Acute Cystitis; Blood in Urine; Proteinuria; Body Mass Index 30+ - Obesity Rosetta Panchal, [facility]: [address] [place] [address], Ph. History of Present Illness [id number] Reported By: Patient HPI: Location: radiation to bladder, urethra. Quality: pain, pressure, burning. Severity: worsening, moderate. Duration: started 04-14-18, constant. Onset/Timing: worse, gradual. Context: no known exposure to STD, no prior history of STDs, sexually active, LMP9-29-18, heterosexual, vaginal intercourse, history of urine cultures/antibiotic treatment, wipes anterior to posterior, voids after intercourse. Modifying factors nothing makes it worse. Associated Symptoms: no fever/chills, no flank pain, no jaundice, no blood in the urine, no vaginal discharge, no blisters on genitals, no rash on genitals, no muscle aches, no headache, pain during urination, urgency, hesitancy Review of Systems:ROS as noted in the [...] hepatomegaly. Spleen: non-tender, no splenomegaly. Hernia: none palpable
--- OUTSIDE RECORDS SUMMARY | 2019-01-18 21:49 | XMS REPORT | Encounter Summary ---
Author Organization Unknown Address [address] [place] [address] Phone [phone] Reason for Visit Medical Complaint; Immunization; sore throat, congestion , coughx 3 days Instructions 1. Allergic rhinitis 2. Acute pharyngitis rapid strep group A, throat 3. Cough rapid flu (A+B) 4. Immunization Adacel (Tdap Adolesn/Adult)(PF)2Lf-(2.5-5-3-5mcg)-5 Lf/0.5 mL IM susp Discussion Note: None recorded. Patient educational handouts: No information available. Plan of Care Patient Instructions As discussed above. Reminders Provider Appointments None recorded. Lab Rapid Flu (A+B) 08/17/2016 [facility] Rapid Strep Group a, Throat 08/17/2016 [facility] Referral None recorded. Procedures None recorded. Surgeries None recorded. Imaging None recorded. Medications No Medications Reported Medications Administered None recorded. Vitals Height Weight BMI Blood Pressure 5 ft 3 in 190 lbs 33.7 110/80 Lab Results Date Name Result Description Value Range Status Rapid Flu (A+B) Influenza a negative Influenza B negative Rapid Strep Group a, Throat Result negative Swab Location Left and Right tonsillar pillars Allergies Name Reaction Severity Onset NKDA Problems Name Status Onset Date Source Acute Pharyngitis Active Encounter Allergic Rhinitis Active Encounter Acute Urinary Tract Infection Active Encounter Cough Active Encounter Procedures None recorded. Vaccine List Vaccine Type Tdap 08/17/20160.5 mL Social History Smoking Status Never Smoker Past Encounters 08/17/2016 Allergic Rhinitis; Acute Pharyngitis; Cough; Immunization [facility]: [address] [place] [address], Ph. History of Present Illness Throat-Oral Complaint Reported By: Patient HPI: Location: throat. Quality: sore throat, congested, dry or hacking cough. Severity: moderate. Duration: 4 days. Onset/Timing: sudden. Context: no sick contacts, no foreign travel, non-smoker. Modifying factors: OTC medication. Associated Symptoms: no sputum production, no shortness of breath, no wheezing, no change in number of pillows needed to sleep at night, no sweats, no significant weight gain, no significant weight loss, no morning cough, no vomiting, no diarrhea, no rash, no nausea, sore throat Immunization Reported By: Patient HPI: Immunization Request (normal) no symptoms. Immunization eligibility questions No vaccines in last month, No reaction to previous vaccines:, No Known Allergies Review of Systems Basic Reported By: Patient Constitutional: Constitutional: no fever Eyes: Eyes: no eye complaints Vsfw-Nliw-Tbqcy-Throat: Ears: no ear complaints; pressure left side. Nose: nose/sinus problems. Mouth/Throat: no bleeding gums, no mouth complaints, no teeth problems, sore throat Cardiovascular: Cardiovascular: no chest pain, no shortness of breath, no known heart murmur Respiratory: Respiratory: no wheezing, no shortness of breath, cough Gastrointestinal: Gastrointestinal: no abdominal pain, no vomiting / diarrhea Genitourinary: Genitourinary: no urinary complaints, no discharge Musculoskeletal: Musculoskeletal: no muscle aches, no muscle weakness, no arthralgias/joint pain, no back pain Skin: Skin: no abnormal / changing mole, no jaundice, no rashes Neurologic: Neurologic: no loss of consciousness, no weakness, no numbness, no seizures, no dizziness, no headaches Physical Exam Adult Basic, Adult Female Complete, Immunization Constitutional: General Appearance: healthy-appearing, well-nourished, well-developed. Level of Distress: NAD. Ambulation: ambulating normally Psychiatric: Mental Status: active and alert. Orientation: to time, to place, to person Eyes: Lids and Conjunctivae: non-injected, no discharge, no pallor. Pupils: PERRLA. Corneas: grossly intact. EOM: EOMI. Lens: clear. Sclerae: non-icteric. Vision: acuity grossly intact Fal-Yrbu-Xzjuu-Throat: Ears: no lesions on external ear, no outer ear tenderness, EACs clear, TMs clear. Hearing: no hearing loss. Nose: no lesions on external nose, nares patent, no septal deviation, nasal passages clear, no sinus tenderness, nasal discharge--rhinorrhea; rhinitis. Lips, Teeth, and Gums: no mouth or lip ulcers, no bleeding gums, normal dentition. Oropharynx: moist mucous membranes, no exudates, tonsils not enlarged, erythema Neck: Neck: supple, trachea midline, no masses, FROM. Lymph Nodes: no cervical LAD, no supraclavicular LAD. Thyroid: no enlargement, non-tender, no nodules Lungs: Respiratory effort: no dyspnea, no tachypnea, no use of accessory muscles, no intercostal retractions. Auscultation: breath sounds normal Cardiovascular: Heart Auscultation: RRR, no murmurs. Neck vessels: no carotid bruits
--- OUTSIDE RECORDS SUMMARY | 2019-01-18 21:50 | XMS REPORT | Encounter Summary ---
Author Organization Unknown Address [address] [place] [address] Phone [phone] Reason for Visit Medical Complaint; Immunization; sore throat, congestion , coughx 3 days Instructions 1. Allergic rhinitis 2. Acute pharyngitis rapid strep group A, throat 3. Cough rapid flu (A+B) 4. Immunization Adacel (Tdap Adolesn/Adult)(PF)2Lf-(2.5-5-3-5mcg)-5 Lf/0.5 mL IM susp 5. Counseling Discussion Note: None recorded. Patient educational handouts: [...] Encounters 08/17/2016 Allergic Rhinitis; Acute Pharyngitis; Cough; Immunization; Counseling [facility]: [address] [facility] [place] [address], Ph. History of Present Illness Throat-Oral Complaint [...] no fever Eyes: Eyes: no eye complaints Pkrw-Tuns-Pfbms-Throat: Ears: no ear complaints; pressure left side. [...] clear. Sclerae: non-icteric. Vision: acuity grossly intact Ejh-Xcjb-Ssohg-Throat: Ears: no lesions on external ear, no [...]
--- OUTSIDE RECORDS SUMMARY | 2019-01-18 21:51 | XMS REPORT | Encounter Summary ---
Author Organization Unknown Address [address] [place] [address] Phone [phone] Reason for Visit Medical Complaint Instructions 1. Urinary tract infectious disease urinary tract infection in women: care instructions phenazopyridine 200 mg tablet Macrobid 100 mg capsule culture, urine urinalysis, dipstick Discussion Note Pt is in NAD; Verbalizes understanding of all instructions with no questions at this time. Plan of Care Patient Instructions Recommend proper hydration and frequent urination. Avoid douching, Recommend urinating after sexual intercourse. Recommend wipe front to back after urinating. Avoid using tubs. Take medications as prescribed. Return to clinic or follow up with your PCP within 2-3 days if symptoms worsen as discussed. Reminders Provider Appointments None recorded. Lab Culture, Urine 10/27/2016 [facility] Urinalysis, Dipstick 10/27/2016 [facility] Referral None recorded. Procedures None recorded. Surgeries None recorded. Imaging None recorded. Medications Name Start Date Macrobid 100 mg capsule Take 1 capsule twice a day by oral route with meals for 5 days. phenazopyridine 200 mg tablet Take 1 tablet 3 times a day by oral route as needed for bladder discomfort for 2 days. Medications Administered None recorded. Vitals Height Weight BMI Blood Pressure 5 ft 3 in 180 lbs 31.9 134/86 Lab Results Date Name Specimen Result Interpretation Description Value Range Status Address Urinalysis, Dipstick Color : Anneliese [facility]: [address] [place] [address] Clarity : Turbid [facility]: [address] [place] [address] Leukocytes : Moderate [facility]: [address] [place] [address] Nitrites : Positive [facility]: [address] [place] [address] Urobilinogen : 2 [facility]: [address] [place] [address] Protein : 300 [facility]: [address] [place] [address] Ph : 6.5 [facility]: [address] [place] [address] Blood : Large [facility]: [address] [place] [address] Specific [place] : 1.030 [facility]: [address] [place] [address] Ketones : Negative [facility]: 9 [facility] Bilirubin : Negative [facility]: 9 [facility] Glucose Negative [facility]: 9 [facility] Allergies Code Code System Name Reaction Severity Onset NKDA Problems Name Status Onset Date Source Acute Pharyngitis Active Encounter Allergic Rhinitis Active Encounter Acute Urinary Tract Infection Active Encounter Cough Active Encounter Procedures None recorded. Vaccine List Vaccine Type Tdap 08/17/20160.5 mL Social History Smoking Status Never Smoker Past Encounters 10/27/2016 Urinary Tract Infectious Disease Rosetta Ansley, [facility]: [address] [place] [address], Ph. History of Present Illness [id number] Reported By: Patient HPI: Location: ; bladder. Quality: pressure, burning. Severity: moderate. Duration: started 3 days ago. Onset/Timing: gradual. Context: no known exposure to STD, no prior history of STDs, sexually active, LMP4, heterosexual, wipes anterior to posterior; does not void after sexual intercourse. Modifying factors ; voiding worsens sympytoms. Associated Symptoms: no fever/chills, no flank pain, no jaundice, no blood in the urine, no pain during urination, no vaginal discharge, no blisters on genitals, no rash on genitals, no muscle aches, no headache, burning sensation during urination, urgency, hesitancy, urinary frequency Review of Systems:ROS as noted in the HPI Review of Systems Basic Reported By: Patient Physical Exam Adult Basic, Adult Female Complete, Adult Male Complete Reported By: Patient Constitutional: General Appearance: healthy-appearing, well-nourished, well-developed. Level of Distress: NAD. Ambulation: ambulating normally Psychiatric: Mental Status: active and alert. Orientation: to time, to place, to person Lungs: Respiratory effort: no dyspnea, no tachypnea, no use of accessory muscles, no intercostal retractions. Auscultation: breath sounds normal, good air movement Cardiovascular: Heart Auscultation: RRR, no murmurs Abdomen: Bowel Sounds: normal. Inspection and Palpation: soft, non-distended, no tenderness, no guarding, no rebound tenderness, no masses, no CVA tenderness
[2019-01-18] MEDS ORDERED: TETRACAINE HCL 0.5% OPTH SOLN 4 ML BTL ONE (22:08)
[2019-01-18] MEDS ORDERED: EYE IRRIGATION (OPTH) 120 ML BTL ONE (22:08)
[2019-01-18] MEDS ORDERED: EYE IRRIGATION (OPTH) 120 ML BTL OP ONE (22:15)
[2019-01-18] MEDS ORDERED: TETRACAINE HCL 0.5% OPTH SOLN 4 ML BTL OP ONE (22:15)
[2019-01-18 23:06] VITALS: BP 167/111
== END 2019-01-18 23:22 | disposition home or self-care (01) ==
LOC: ER 21:39
DX: H57.11 Ocular pain, right eye (principal); T26.61XA Corrosion of cornea and conjunctival sac, right eye, initial encounter; T55.1X1A Toxic effect of detergents, accidental (unintentional), initial encounter
CPT/HCPCS: 99282